=== PATIENT | female | born 1985 | race Caucasian/White ===

== ENCOUNTER 2018-11-09 19:55 | Emergency (ER) | payer BC ==
[2018-11-09 20:22] VITALS: BP 139/80
[2018-11-09] MEDS ORDERED: Azithromycin TAB* 250 MG PO ONE (21:01)
--- NOTE | 2018-11-09 21:02 | UC ---
Throat Pain/Nasal [place] HPI - HPI Summary HPI Summary: 33-year-old woman comes in with a chief complaint of sore throat. Patient's had a sore throat and some postnasal drip for 2 weeks now. Initially was getting better now is getting worse over the last couple of days. It hurts to swallow. Patient's noticed some white spots in the back of her throat and on her tonsils. - History of Current Complaint Chief Complaint: UCRespiratory Stated Complaint: THROAT PAIN Time Seen by Provider: 11/09/18 20:54 Hx Last Menstrual Period: 11/02/18 Pain Intensity: 8 - Allergies/Home Medications Allergies/Adverse Reactions: Allergies Allergy/AdvReac Type Severity Reaction Status Date / Time No Known Allergies Allergy Verified 11/09/18 20:22 Home Medications: Home Medications Loratadine/Pseudoephedrine [Claritin-D 12 Hour Tablet] 1 tab PO Q6HR 11/09/18 [ History Confirmed 11/09/18] PMH/Surg Hx/FS Hx/Imm Hx Previously Healthy: Yes - Surgical History Surgical History: None - Family History Known Family History: Positive: None - Social History Alcohol Use: None Substance Use Type: None Smoking Status (MU): Never Smoked Tobacco Review of Systems All Other Systems Reviewed And Are Negative: Yes Constitutional: Positive: Negative Skin: Positive: Negative Eyes: Positive: Negative ENT: Positive: Sore Throat, Nasal Discharge Respiratory: Positive: Negative Cardiovascular: Positive: Negative Gastrointestinal: Positive: Negative Motor: Positive: Negative Neurovascular: Positive: Negative Musculoskeletal: Positive: Negative Neurological: Positive: Negative Psychological: Positive: Negative Is Patient Immunocompromised?: No Physical Exam Triage Information Reviewed: Yes Appearance: No Pain Distress, Well-Nourished, Ill-Appearing - mild Vital Signs: Initial Vital Signs Temp 98.1 F 11/09/18 20:17 Pulse 70 11/09/18 20:17 Resp 16 11/09/18 20:17 BP 139/80 11/09/18 20:17 Pulse Ox 100 11/09/18 20:17 Vital Signs Reviewed: Yes Eye Exam: Normal Eyes: Positive: Conjunctiva Clear ENT: Positive: Pharyngeal erythema, Nasal congestion, TMs normal Neck: Positive: Supple Respiratory: Positive: Lungs clear, Normal breath sounds, No respiratory distress Cardiovascular: Positive: RRR Musculoskeletal Exam: Normal Musculoskeletal: Positive: Strength Intact, ROM Intact Neurological: Positive: Alert, Muscle Tone Normal Psychological Exam: Normal Psychological: Positive: Age Appropriate Behavior Skin Exam: Normal Throat Pain/Nasal Course/Dx - Course Course Of Treatment: Will treat with ABx due to > 10 days of Sx. - Differential Dx/Diagnosis Provider Diagnosis: Pharyngitis Discharge - Sign-Out/Discharge Documenting (check all that apply): Patient Departure All imaging exams completed and their final reports reviewed: No Studies - Discharge Plan Condition: Stable Disposition: HOME Prescriptions: Azithromycin 250 mg PO DAILY #4 tablet Patient Education Materials: Pharyngitis (ED) Referrals: [facility] [Outside] Additional Instructions: FOLLOW UP WITH YOUR DOCTOR IF NOT COMPLETELY IMPROVED. GET RECHECKED SOONER IF YOUR CONDITION WORSENS OR ANY QUESTIONS OR CONCERNS. - Billing Disposition and Condition Condition: STABLE Disposition: Home
== END 2018-11-09 21:10 | disposition home or self-care (01) ==
LOC: UCEAST 19:55
DX: J02.9 Acute pharyngitis, unspecified (principal)
CPT/HCPCS: 99202; A9270-GY; G0463